=== PATIENT | male | born 1945 | race Caucasian/White ===

== ENCOUNTER → 2020-01-03 | Outpatient (CLI) | payer OTHER | LOC: SJCVC 10:08 | DX: I44.0 Atrioventricular block, first degree (principal); R60.9 Edema, unspecified; I10 Essential (primary) hypertension; I47.1 Supraventricular tachycardia; E78.5 Hyperlipidemia, unspecified ==

== ENCOUNTER → 2020-01-05 | Outpatient (CLI) | payer OTHER | LOC: SJCVCIMAG 09:02 | DX: I08.1 Rheumatic disorders of both mitral and tricuspid valves (principal); E78.5 Hyperlipidemia, unspecified; I10 Essential (primary) hypertension ==

== ENCOUNTER → 2020-07-10 | Outpatient (CLI) | payer OTHER | LOC: RAD 10:22 → SJCVC 10:22 | PROVIDERS: ATTEND Internal Medicine | DX: R94.31 Abnormal electrocardiogram [ECG] [EKG] (principal); I44.0 Atrioventricular block, first degree; I10 Essential (primary) hypertension; E78.5 Hyperlipidemia, unspecified; M25.559 Pain in unspecified hip; R60.9 Edema, unspecified; I47.1 Supraventricular tachycardia; Z79.82 Long term (current) use of aspirin; Z79.899 Other long term (current) drug therapy ==